=== PATIENT | female | born 1940 | race Two or more races ===

== ENCOUNTER → 2018-05-11 | Day surgery (SDC) | payer OTHER ==
[2018-05-11] VITALS (9 sets, daily range): BP systolic 108–151; BP diastolic 73–89
[~2018-05-11] VITALS: Ht 152.4 cm; Wt 58.1 kg
[~2018-05-11] MED LIST: Atropine Inj 1mg/10ml Syr IV PRN; BEPREVE10 ML BOTH EYES; DiphenhydrAMINE 50mg/ml Inj IVP PRN; FLOVENT2 PUFF1 INH; LATANOPROST2.5 ML BOTH EYES; LIPITOR10 MG ORAL; LOSARTAN POTASS25 MG ORAL; LOTEMAX3.5 GM BOTH EYES; LR 1000ml 1,000 ML IVLG SCH; LR 1000ml ONE; Lidocaine 1% MPF 10mg/ml 5ml ONE; Midazolam 2mg/2ml Inj IVP PRN; Propofol 200mg/20ml IV ONE; fentaNYL 100 mcg/2 mL IV PRN
--- NOTE | 2018-05-11 06:54 | Anethesia Preoperative Eval ---
Anesthesia Pre-op PMH/ROS General Date of Evaluation: May 11, 2018 Time of Evaluation: 06:53 Anesthesiologist: gloria ASA Score: ASA 3 Mallampati Score Class I : Soft palate, uvula, fauces, pillars visible Class II: Soft palate, uvula, fauces visible Class III: Soft palate, base of uvula visible Class IV: Only hard plate visible Mallampati Classification: Class II Surgeon: jigna Diagnosis: abdominal pain Surgical Procedure: egd Anesthesia History: none Social History: smoking - nonsmoker Family History: no anesthesia problems Allergies: Coded Allergies: No Known Allergies (Unverified , 05/10/18) Medications: see eMAR Patient NPO?: Yes Past Medical History Cardiovascular: Reports: HTN, other - hyperlipidemia Pulmonary: Reports: asthma HEENT: Reports: glaucoma Anesthesia Pre-op Phys. Exam Physician Exam Last Vital Signs Date Time Temp Pulse Resp B/P (MAP) Pulse Ox O2 Delivery O2 Flow Rate FiO2 05/11/18 07:46 98.1 69 16 151/89 (109) 98 98.1 Constitutional: NAD Neurologic: CN 2-12 intact Cardiovascular: RRR Respiratory: CTA Gastrointestinal: S/NT/ND Airway Exam Mallampati Score: Class II MO: limited Neck: flexible TMD: 2fb ROM: limited Anesthesia Pre-op A/P Risk Assessment & Plan Assessment: asa3 Plan: mac Status Change Before Surgery: No Pre-Antibiotics Drug: Lin Camara MD May 11, 2018 06:54
--- NOTE | 2018-05-11 07:46 | Short Stay Surgery H&P ---
History of Present Illness History of Present Illness Chief Complaint abdominal pains/dysphagia/GERD HPI Rosa Pina is a 77 year old female who was admitted on for Abdominal Pain/ dysphagia Patient History Allergies: Coded Allergies: No Known Allergies (Unverified , 05/10/18) Review of Systems Cardiovascular: Reports: no symptoms Respiratory: Reports: asthma Skeletal: Reports: trauma Gastrointestinal: Reports: gastro esophageal reflux disease Genitourinary: Reports: other Neurologic: Reports: neuropathy Endocrine: Reports: no symptoms Hematologic: Reports: no symptoms Physical Exam Skin: normal HENT: normal Heart: normal Lungs: normal Abdomen: abnormal Extremities: normal Genitourinary: normal Plan Plan of Care Upper GI endoscopy and biopsy Preop Interventions None. Summary of Findings See the reports Attestation Are the patient's medical conditions optimized for surgery? Attestation Response: yes Julian Carty MD May 11, 2018 07:46
--- NOTE | 2018-05-11 07:47 | Pre-Procedure Note/Attestation ---
Pre-Procedure Note/Attestation Complete Prior to Procedure Planned Procedure: left Procedure Narrative: Endoscopic examination of the upper GI tract Indications for Procedure Pre-Operative Diagnosis: R/O Esophagitis/Gastric/duodenal ulcer Attestation I attest that I discussed the nature of the procedure; its benefits; risks and complications; and alternatives (and the risks and benefits of such alternatives ), prior to the procedure, with the patient (or the patient's legal sales representative graphic art). I attest that, if there was a reasonable possibility of needing a blood transfusion, the patient (or the patient's legal sales representative graphic art) was given the [facility] standardized written summary, pursuant to the [employer] [place] Blood Safety Act ([place] Health and Safety Code # 1645, as amended). I attest that I re-evaluated the patient just prior to the surgery and that there has been no change in the patient's H&P, except as documented below: Julian Carty MD May 11, 2018 07:47
--- NOTE | 2018-05-11 08:19 | Endoscopy Procedure Note ---
Endoscopy Procedure Note General Indication for Procedure: Abdominal pain/GERD and dysphagia Procedures Performed: EGD - Moderate gastritis of the antrum with superficial erosions biopsied. Biopsy also obtained from gastric body. Hiatal Hernia. Specimen: yes Pt Tolerated Procedure Well: Yes Estimated Blood Loss: none Anesthesia Anesthesiologist: Dr. Diallo Anesthesia: moderate sedation Medications Medication Given: see anesthesia record Inserted Devices Implant(s) used?: No Quality Was there any complications?: No GI Core Measures 50 yrs or older w/o bx or poly: Not Applicable 10yrs. F/U not recommended: Not Applicable If not recommended, why?: Med reason:<3 yrs.: Julian Carty MD May 11, 2018 08:19
--- NOTE | 2018-05-11 08:21 | Discharge Instructions ---
Discharge Instructions Discharge Instructions Follow up with: See the doctor after two weeks in the office. For Congestive Heart Failure Reminder Report to your physician any weight gain of 5 pounds or more in one week. Julian Carty MD May 11, 2018 08:21
--- NOTE | 2018-05-11 08:33 | Immediate Post-Op Evaluation ---
Immediate Post-Op Evalulation Immediate Post-Op Evalulation Procedure: egd w/bx Date of Evaluation: May 11, 2018 Time of Evaluation: 08:31 IV Fluids: lr 250ml Blood Products: none Estimated Blood Loss: negligible Blood Pressure Systolic: 108 Blood Pressure Diastolic: 74 Pulse Rate: 68 Respiratory Rate: 18 O2 Sat by Pulse Oximetry: 100 Temperature (Fahrenheit): 97.5 Pain Score (1-10): 0 Nausea: No Vomiting: No Complications none Patient Status: awake, reacts, patent Hydration Status: adequate Drug: Lin Camara MD May 11, 2018 08:33
--- NOTE | 2018-05-11 08:34 | 48 Hour Post Anesthesia Eval ---
Post Anesthesia Evaluation Procedure: egd w/bx Date of Evaluation: May 11, 2018 Time of Evaluation: 08:33 Blood Pressure Systolic: 110 0: 78 Pulse Rate: 70 Respiratory Rate: 18 Temperature (Fahrenheit): 97.5 O2 Sat by Pulse Oximetry: 100 Airway: patent Nausea: No Vomiting: No Pain Intensity: 0 Hydration Status: adequate Cardiopulmonary Status: stable Mental Status/LOC: patient returned to baseline Post-Anesthesia Complications: none Follow-up care needed: N/A Lin Galicia MD May 11, 2018 08:34
--- NOTE | 2018-05-11 16:15 | Pre-op HX & Phy Repo 2 SIG ---
DATE OF ADMISSION: 05/11/2018 HISTORY OF PRESENT ILLNESS: The patient is a 77-year-old female who is being seen prior to undergoing the procedure for upper GI endoscopy for which she has been scheduled to receive for evaluation of her gastrointestinal symptoms that she has suffered subsequent to her work injury. The patient basically has been complaining of experiencing pain over the upper part as well as different sites in the abdomen. But mostly she does have epigastric discomfort and symptoms of heartburn that she reports that she has developed subsequent to her work injury and she has been prescribed multiple medications including nonsteroidal anti-inflammatory agents. Also, she has been treated for this heartburn with medications of PPIs such as omeprazole and antacid. She reports that she cannot tolerate spicy foods either. As I mentioned, the patient has been injured at job site while working for the [employer] and as such, she got injured in the process of work where she reported that in October 2013 as she was opening the door of her room, she suddenly got injured over her head area by slap of the door. This was actually the door being opened by someone else. She started to experience vertigo and dizziness and headaches, nausea and vomiting. She was sent to worker compensation clinics. She received treatment as such, but she has been suffering from multiple symptoms including pain over the extremities, shoulders, lower back, and she was also complaining of numbness and tingling sensations in her upper part of the body and hands. Finally, she was seen by multiple physicians including ENT and also does indeed suffer from psychological conditions such as severe depression and anxiety symptoms. Finally, she had to be placed on total disability. PAST MEDICAL HISTORY: The patient has had history of high blood pressure, asthma, hyperlipidemia, and glaucoma. SURGERIES: She reports that she has had history of C-sections in the past along with arthroscopic examination in of her left knee. ALLERGIES: None significant. HABITS: The applicant reports that she occasionally drinks some wine, but she does not her smoke cigarettes and does not use illicit drugs etc. CURRENT MEDICATIONS: She reports that she is taking atorvastatin, losartan, and eye drops. She is also taking omeprazole 20 mg daily and ProAir HFA . REVIEW OF SYSTEMS: The applicant has been complaining of headaches and dizziness along with respiratory problems such as shortness of breath after some short distance of walking. There has been no history of angina or palpitation etc. She also reports that she also has pain over her shoulders, neck, and hand and fingers along with knees at this time. As I mentioned, the applicant basically does have problem with her sleep and she has been seen also by psychological data center consultant because of the anxiety and stress related to work accident. PHYSICAL EXAMINATION: GENERAL: At this time reveals an alert, well-oriented female, does not seem to be in any acute distress. She answers the questions quite properly. VITAL SIGNS: All stable HEENT: Normocephalic. Pupils are equal in size, reactive to light and accommodation. There is no any evidence of jaundice. Buccal cavity, tongue midline, well hydrated. No ulcers. NECK: Supple. No JVD or thyromegaly. No masses. CHEST: Clear to auscultation and percussion. No rales or rhonchi. HEART: S1 and S2 normal. Regular rhythm. No gallops or murmur. ABDOMEN: Soft but there are areas of the tenderness on all parts of the abdomen of a mild degree, but there is no hepatosplenomegaly. There is no masses noted. Bowel sounds are present. EXTREMITIES: Unremarkable. PRELIMINARY PREOPERATIVE IMPRESSION: 1. Evidence of abdominal pain, rule out gastroesophageal reflux, esophagitis, peptic ulcer disease due to the patient having also dysphagia. 2. History of generalized abdominal pain, possibly related to irritable bowel syndrome, aggravated by anxiety and stress and side effects of medications. 3. Rule out NSAID-induced gastropathy. 4. Hypertension. 5. Asthma. 6. Hyperlipidemia. RECOMMENDATIONS: The applicant seems to be stable at this time to undergo the procedure of upper GI endoscopy for which she has been scheduled. She understands the risks and benefits and will sign the consent. Said Jose Carty DR: Everette JOB#: [id number] CC:
--- NOTE | 2018-05-11 16:45 | Procedure Note ---
DATE OF PROCEDURE: 05/11/2018 SURGEON: Julian Carty M.D. PROCEDURE: Esophagogastroduodenoscopy with biopsy PREOPERATIVE DIAGNOSES: Abdominal pain, heartburn, dysphagia. POSTOPERATIVE DIAGNOSES: 1. Hiatal hernia. 2. Erosive gastritis and edema of the pre-pyloric area and the antrum consistent for erosive gastritis. Biopsy was taken from the antrum and gastric body. MEDICATION USED: Per Dr. Diallo, anesthesiologist. INSTRUMENT: GIF Olympus upper GI video endoscope. DESCRIPTION OF PROCEDURE: The patient, after arriving in the endoscopy unit, was told about risks and benefits of the procedure which she accepted signed informed consent. At this time, she was put on the left lateral decubitus position. After adequate IV sedation, the scope was gently passed through the cricopharyngeal area, and gradually advanced towards gastroesophageal junction. The entire length of the esophagus looked normal without any evidence of inflammatory process, stricture, ulceration, erosions, etc. There was also evidence of hiatal hernia, but no Coreas's noted. The scope was then guided into the stomach. Gastric cavity was distended and gradually the areas of the fundus and the body and the antrum were examined. It revealed that basically there were inflammatory process presenting with edema and erythema of moderate degree in the antral area particularly prepyloric section with edema of the gastric folds. There was also small erosions in this area with a small blood clot on the top of them. There was no active bleeding. No tumor or masses were found. At this point, biopsy from the antrum as well as the gastric body obtained and retroflexion was maneuvered also which revealed normal finding in the gastroesophageal junction in a retrograde fashion. Finally, scope was passed through the pylorus. First and second portion of duodenum were also found to be completely normal. At this time, the scope was pulled out. The procedure was terminated. The patient tolerated the procedure well left the endoscopy room in a good condition. Julian Carty M.D. DR: Everette JOB#: [id number] CC:
== END | disposition home or self-care (01) ==
LOC: GAS 07:16
DX: K29.50 Unspecified chronic gastritis without bleeding (principal); K44.9 Diaphragmatic hernia without obstruction or gangrene; J45.909 Unspecified asthma, uncomplicated; G62.9 Polyneuropathy, unspecified; F32.9 Major depressive disorder, single episode, unspecified; F41.9 Anxiety disorder, unspecified; E78.5 Hyperlipidemia, unspecified; H40.9 Unspecified glaucoma; I10 Essential (primary) hypertension
CPT/HCPCS: 43239; J2704; 94003; 94150